=== PATIENT | female | born 1945 | race Caucasian/White ===

== ENCOUNTER 2017-05-01 18:32 | Inpatient (IN) | payer OTHER, MEDICAID ==
[~2017-05-01] VITALS: Ht 149.9 cm; Wt 69.0 kg
[2017-05-01 20:54] LABS: CALCIUM 9.5 mg/dL (8.5-10.1); CARBON DIOXIDE 28.6 mmol/L (21-32)
[2017-05-01 20:59] LABS: BILIRUBIN TOTAL 0.4 mg/dL (0.20-1.00); TOTAL PROTEIN, SERUM 7.9 g/dL (6.4-8.2)
[2017-05-01 21:02] LABS: BASOPHIL % 0.4 % (0-2); PLATELET COUNT 184 x10^3mcL (130-400); RED CELL DISTRIBUTION WIDTH 13.4 % (11.5-14.5)
[2017-05-01] MEDS ORDERED: LEVODOPA1 POW (21:46)
[2017-05-01] MEDS ORDERED: COZAAR25 M1 (21:46)
[2017-05-01 22:26] VITALS: BP 158/85
[2017-05-01 22:32] VITALS: Ht 149.9 cm; Wt 69.0 kg
[2017-05-01] MEDS ORDERED: LOSARTAN POTASS1 TAB PO (22:32)
[2017-05-01] MEDS ORDERED: [UNRECOGNIZED DRUG - CODE] PO (22:33)
[2017-05-01 22:59] VITALS: BP 158/85
[2017-05-01 23:22] LABS: CHOLESTEROL/HDL RATIO 5.4
[2017-05-01 23:35] LABS: FREE THYROXINE INDEX 2.6 ug/dL (1.4-4.5); T4(THYROXINE) 7.6 ug/dL (4.7-13.3)
[2017-05-02 00:15] LABS: T3 TOTAL 1.02 ng/mL
[2017-05-02 06:18] VITALS: BP 150/77
[2017-05-02 09:10] VITALS: BP 132/71
[2017-05-02 12:27] LABS: microscopic required? YES; urine erythrocyte NEGATIVE (NEGATIVE)
[2017-05-02 14:32] VITALS: BP 129/70
[2017-05-02 16:54] VITALS: BP 130/72
[2017-05-02 21:09] VITALS: BP 143/73
[2017-05-03 06:27] VITALS: BP 129/71
[2017-05-03 06:44] LABS: CALCIUM 8.9 mg/dL (8.5-10.1); CARBON DIOXIDE 24.6 mmol/L (21-32); CHLORIDE SERUM 107 mmol/L (98-107); CREATININE SERUM 0.9 mg/dL (0.6-1.0); GFR1 > 60 mL/min; GLUCOSE SERUM 105 mg/dL (74-106); MAGNESIUM 1.9 mg/dL (1.8-2.4); PHOSPHOROUS 3.9 mg/dL (2.5-4.9); POTASSIUM SERUM 3.8 mmol/L (3.5-5.1); SODIUM SERUM 142 mmol/L (136-145)
[2017-05-03 08:10] VITALS: BP 147/66
[2017-05-03] MEDS ORDERED: ATORVASTATIN CA40 M1 PO (14:08)
[2017-05-03] MEDS ORDERED: ECO81 PO (14:09)
[2017-05-03] MEDS ORDERED: LAC PO (14:11)
[2017-05-03] MEDS ORDERED: MAC100 PO (14:11)
[2017-05-03 14:41] VITALS: BP 117/57
[2017-05-03 14:43] VITALS: BP 117/57
[2017-05-03] MEDS ORDERED: LEXAPRO10 MG PO (15:16)
== END 2017-05-03 13:00 | disposition home or self-care (01) | DRG 206 ==
LOC: ED 18:32 → DU 21:49
PROVIDERS: Emergency Medicine; Family Medicine; ADMIT Family Medicine
DX: M94.0 Chondrocostal junction syndrome [Tietze] (principal); N39.0 Urinary tract infection, site not specified; E11.9 Type 2 diabetes mellitus without complications; I10 Essential (primary) hypertension; G20 Parkinson's disease; I25.10 Atherosclerotic heart disease of native coronary artery without angina pectoris; E78.2 Mixed hyperlipidemia; E66.9 Obesity, unspecified; I25.2 Old myocardial infarction; Z79.82 Long term (current) use of aspirin; Z68.26 Body mass index [BMI] 26.0-26.9, adult
CPT/HCPCS: 82962; 83880; 84439; J0696; J7030; Q0092